=== PATIENT | male | born 1990 | race Caucasian/White ===

== ENCOUNTER 2018-01-30 04:52 | Emergency (ER) | payer SELFPAY ==
[2018-01-30 06:23] VITALS: BP 139/88
== END 2018-01-30 06:32 | disposition other institution (70) ==
LOC: ED 04:52
DX: Z02.89 Encounter for other administrative examinations (principal)

== ENCOUNTER 2018-01-30 05:49 | Emergency (ER) | payer OTHER | END 2018-01-30 06:23 | disposition other institution (70) | LOC: ED 05:49 | DX: Z02.89 Encounter for other administrative examinations (principal) ==